=== PATIENT | male | born 1950 | race Caucasian/White ===

== ENCOUNTER 2016-12-24 12:18 | Emergency (ER) | payer OTHER, MEDICARE ==
[~2016-12-24] VITALS: Ht 175.3 cm; Wt 136.5 kg
[2016-12-24 12:20] VITALS: BP 143/91
== END 2016-12-24 13:24 | disposition home or self-care (01) ==
LOC: ED 13:23
DX: Z48.01 Encounter for change or removal of surgical wound dressing (principal); F17.210 Nicotine dependence, cigarettes, uncomplicated; E11.9 Type 2 diabetes mellitus without complications
CPT/HCPCS: 99282